=== PATIENT | male | born 1960 | race Caucasian/White ===

== ENCOUNTER 2021-01-19 07:21 | Inpatient (IN) ==
[2021-01-19] MEDS ORDERED: fentaNYL citrate 100 MCG/2 ML VIAL IV STA (07:32)
[2021-01-19 07:39] LABS: Basophils # (auto) 0.04 K/uL (0-0.2); Basophils % (auto) 0.7 %; Eosinophils # (auto) 0.12 K/uL (0-0.5); Eosinophils % (auto) 2.1 %; Hematocrit (blood only) 51.1 % (42-52); Immature Granulocytes # (auto) 0.02 K/uL (0.00-0.02); Immature Granulocytes % (auto) 0.3 %; Lymphocytes # (auto) 1.23 K/uL (1.2-3.4); Lymphocytes % (auto) 21.4 %; Mean Corpuscular Hemoglobin 31.1 pg (25-34); Mean Corpuscular Hgb Conc 35.2 g/dL (32-36); Mean Corpuscular Volume 88.4 fL (80-100); Mean Platelet Volume 9.9 fL (7.4-10.4); Monocytes # (auto) 0.43 K/uL (0.11-0.59); Monocytes % (auto) 7.5 %; Platelet Count 227 K/uL (130-400); RDW Coefficient of Variation 12.7 % (11.5-14.5); RDW Standard Deviation 40.5 fL (36.4-46.3); Red Blood Count 5.78 M/uL (4.7-6.1); White Blood Count 5.74 K/uL (4.8-10.8)
--- NOTE | 2021-01-19 07:39 | Emergency Department Note ---
History of Present Illness General Chief complaint: Chest Pain Time Seen by Provider: 01/19/21 07:21 Source: patient History of Present Illness Provider complaint: Chest pain Onset (ago): hour(s) Location: chest and left Radiation: extremity (Left upper arm) Severity: moderate Pain Consistency: + constant Maximum Pain Intensity: 4 Quality: + other (Tightness) Relieved By: + medication (Nitroglycerin) Exacerbated By: + none Associated symptoms: + diaphoresis and + shortness of breath; no cough, no fever/chills, no headaches, no nausea/vomiting and no syncope This is a 60-year-old male who presents with chest pain starting this morning approximately 5 AM. He describes it as a tightness on the left side of his chest under his armpit and into his left arm. He rates it a 4 out of 10 in severity. He did have some relief with the nitroglycerin he was given in the ambulance but that made him very lightheaded and pale. He does have associated shortness of breath and diaphoresis. He has never had a cardiac history in the past but is treated for hypertension. He denies any fever, cough or cold symptoms, headache, myalgias, loss of taste or smell, abdominal pain, vomiting, diarrhea, urinary symptoms or leg swelling or pain. He denies any recent i mmobilization. He has no history of PE or DVT. Home Medications Medication Instructions Recorded Confirmed Type Barley Powder 1 applic PO QAM 01/19/21 01/19/21 History Beet Juice Powder 1 applic PO QAM 01/19/21 01/19/21 History Liquid Immune Booster 0.25 tsp PO BID 01/19/21 01/19/21 History aspirin 81 mg PO QAM #30 tab 01/19/21 Rx atorvastatin 80 mg PO QAM #30 tab 01/19/21 Rx captopril 6.25 mg PO Q8 #90 tab 01/19/21 Rx cholecalciferol (vitamin D3) 0 mcg PO QAM 01/19/21 01/19/21 History [Vitamin D3] fish,bora,flax oils-om3,6,9no1 1 cap PO QAM 01/19/21 01/19/21 History [Clayton 3-6-9] metoprolol tartrate 12.5 mg PO Q8H #45 tab 01/19/21 Rx zinc sulfate 0 mg PO QAM 01/19/21 01/19/21 History Allergies Allergy/AdvReac Type Severity Reaction Status Date / Time Penicillins Allergy Unknown Unknown Verified 01/19/21 08:08 Past Med/Surg History Medical History Hypertension Family History (Updated 01/19/21 @ 12:53 by Gwendolyn Smyth MD) Other Family history non-contributory Social History Smoking Status: Never smoker Hx Alcohol Use: No Hx Substance Use: No Preferred Language: Indonesian Communication Ability: Effective Recreation Director Required: No Beliefs That Will Affect Care: None Current Living Situation: Spouse Feels Safe at Home: Yes Safety Concerns: Feels Safe At This Time Assistive Devices: Glasses Review of Systems See HPI for pertinent positives & negatives. and A total of 10 systems reviewed and were otherwise negative Physical Exam Vital Signs Vital Signs - 24 hr 01/19/21 07:29 01/19/21 07:30 01/19/21 07:40 Temperature 36.9 C Temperature Source Oral Pulse Rate 88 90 82 Pulse Rate [Apical] Pulse Rate from SpO2 Sensor 90 82 Respiratory Rate 22 19 23 Respiratory Effort / Characteristics Respiratory Depth Respiratory Pattern Blood Pressure 183/125 H 188/124 H 170/116 H Blood Pressure [Left Arm] Blood Pressure Mean 144 145 134 Blood Pressure Mean [Left Arm] Pulse Oximetry 80 L 79 L 94 Oxygen Delivery Method Room Air Oxygen Flow Rate Sepsis Recent Fever Within 48 Hours No Sepsis New/Unexplained Change in Mental Status N/A Sepsis Action Taken by Nursing No Action Required 01/19/21 07:50 01/19/21 08:00 01/19/21 08:38 Temperature Temperature Source Pulse Rate 79 83 101 H Pulse Rate [Apical] Pulse Rate from SpO2 Sensor 77 82 Respiratory Rate 18 21 23 Respiratory Effort / Characteristics Respiratory Depth Respiratory Pattern Blood Pressure 175/121 H Blood Pressure [Left Arm] Blood Pressure Mean 139 Blood Pressure Mean [Left Arm] Pulse Oximetry 99 95 Oxygen Delivery Method Oxygen Flow Rate Sepsis Recent Fever Within 48 Hours Sepsis New/Unexplained Change in Mental Status Sepsis Action Taken by Nursing 01/19/21 08:39 01/19/21 09:00 01/19/21 09:30 Temperature Temperature Source Pulse Rate 98 H 103 H 89 Pulse Rate [Apical] Pulse Rate from SpO2 Sensor 98 H Respiratory Rate 14 22 19 Respiratory Effort / Characteristics Respiratory Depth Respiratory Pattern Blood Pressure 155/98 H Blood Pressure [Left Arm] Blood Pressure Mean 117 Blood Pressure Mean [Left Arm] Pulse Oximetry 86 L 93 Oxygen Delivery Method Nasal Cannula Nasal Cannula Oxygen Flow Rate 3 6 Sepsis Recent Fever Within 48 Hours Sepsis New/Unexplained Change in Mental Status Sepsis Action Taken by Nursing 01/19/21 10:00 01/19/21 10:01 01/19/21 10:26 Temperature Temperature Source Pulse Rate 86 92 H Pulse Rate [Apical] Pulse Rate from SpO2 Sensor 91 H Respiratory Rate 12 22 Respiratory Effort / Characteristics Respiratory Depth Respiratory Pattern Blood Pressure 180/119 H Blood Pressure [Left Arm] Blood Pressure Mean 139 Blood Pressure Mean [Left Arm] Pulse Oximetry 95 95 Oxygen Delivery Method Nasal Cannula Oxygen Flow Rate 3 Sepsis Recent Fever Within 48 Hours Sepsis New/Unexplained Change in Mental Status Sepsis Action Taken by Nursing 01/19/21 10:27 01/19/21 10:30 01/19/21 11:00 Temperature Temperature Source Pulse Rate 88 87 108 H Pulse Rate [Apical] Pulse Rate from SpO2 Sensor 82 87 Respiratory Rate 21 13 19 Respiratory Effort / Characteristics Respiratory Depth Respiratory Pattern Blood Pressure 181/124 H 178/119 H Blood Pressure [Left Arm] Blood Pressure Mean 143 138 Blood Pressure Mean [Left Arm] Pulse Oximetry 95 95 Oxygen Delivery Method Oxygen Flow Rate Sepsis Recent Fever Within 48 Hours Sepsis New/Unexplained Change in Mental Status Sepsis Action Taken by Nursing 01/19/21 11:08 01/19/21 12:15 01/19/21 12:30 Temperature Temperature Source Pulse Rate Pulse Rate [Apical] 85 85 Pulse Rate from SpO2 Sensor Respiratory Rate 17 17 Respiratory Effort / Characteristics Non-Labored Non-Labored Respiratory Depth Normal Normal Respiratory Pattern Regular Regular Blood Pressure Blood Pressure [Left Arm] 179/116 H 189/125 H Blood Pressure Mean Blood Pressure Mean [Left Arm] 137 146 Pulse Oximetry 92 91 Oxygen Delivery Method Nasal Cannula Room Air Room Air Oxygen Flow Rate 3 Sepsis Recent Fever Within 48 Hours Sepsis New/Unexplained Change in Mental Status Sepsis Action Taken by Nursing 01/19/21 12:45 Temperature Temperature Source Pulse Rate Pulse Rate [Apical] 83 Pulse Rate from SpO2 Sensor Respiratory Rate 18 Respiratory Effort / Characteristics Non-Labored Respiratory Depth Normal Respiratory Pattern Regular Blood Pressure Blood Pressure [Left Arm] 203/136 H Blood Pressure Mean Blood Pressure Mean [Left Arm] 158 Pulse Oximetry 91 Oxygen Delivery Method Room Air Oxygen Flow Rate Sepsis Recent Fever Within 48 Hours Sepsis New/Unexplained Change in Mental Status Sepsis Action Taken by Nursing Constitutional: Vital signs reviewed. O2 saturation is 80% on room air. Eyes: Pupils are equal round reactive to light. Conjunctiva are noninjected. ENT: Pharynx is clear without erythema or exudate. Mucous membranes are moist. Neck supple without meningeal signs. Respiratory: Clear to auscultation bilaterally. Breath sounds are equal bilaterally. Cardiovascular: Regular rate and rhythm. No rubs or gallops. GI: Soft, nondistended and nontender. Bowel sounds are present. Musculoskeletal: No peripheral edema. No lower extremity tenderness. Integumentary: No cyanosis. or jaundice. Neurological: The patient is awake and alert. No focal deficits. Psychiatric: Normal affect. Not anxious appearing. Course Administered Medications Atorvastatin Calcium (Atorvastatin 40 Mg Tab) 80 mg PO QAM [facility] Stop: 02/18/21 12:44 Last Admin: 01/19/21 14:45 Dose: 80 mg Documented by: [id number] Captopril (Captopril 12.5 Mg Tab) 6.25 mg PO Q8 [facility] Stop: 02/18/21 13:59 Last Admin: 01/19/21 13:15 Dose: 6.25 mg Documented by: [id number] Nitroglycerin/Dextrose (Nitroglycerin/D5w 100 Mcg/Ml) 250 mls @ 1.5 mls/hr IV .Q24H [facility]; Protocol Stop: 02/18/21 12:44 Last Titration: 01/19/21 15:09 Dose: 2.5 mcg/min, 1.5 mls/hr Documented by: [id number] Titration: 01/19/21 13:38 Dose: 0 mcg/min, 0 mls/hr Documented by: [id number] Admin: 01/19/21 13:15 Dose: 6 mcg/min, 3.6 mls/hr Documented by: [id number] Cosigned by: [id number] Metoprolol Tartrate (Metoprolol Tartrate 25 Mg Tab) 12.5 mg PO Q8H [facility] Stop: 02/18/21 12:44 Last Admin: 01/19/21 13:15 Dose: 12.5 mg Documented by: [id number] Discontinued Medications Dopamine HCl/Dextrose (Dopamine 400mg / 250ml D5w (Physician Assistant Certified Use Only)) Confirm Administered Dose 400 mg .ROUTE .STK-MED ONE Stop: 01/19/21 11:47 Last Admin: 01/19/21 12:14 Dose: Not Given Documented by: [id number] Eptifibatide (Eptifibatide 2 Mg/Ml 10 Ml Vial (Physician Assistant Certified Use Only)) Confirm Administered Dose 20 mg IV .STK-MED ONE Stop: 01/19/21 12:02 Last Admin: 01/19/21 12:05 Dose: 9 ml Documented by: [id number] Eptifibatide (Eptifibatide 0.75 Mg/Ml 75mg Vial (Physician Assistant Certified Use Only)) Confirm A dministered Dose 75 mg .ROUTE .STK-MED ONE Stop: 01/19/21 12:02 Last Increment: 01/19/21 12:05 Dose: 16 mg Documented by: [id number] Eptifibatide (Eptifibatide 2 Mg/Ml 10 Ml Vial (Physician Assistant Certified Use Only)) Confirm Administered Dose 20 mg IV .STK-MED ONE Stop: 01/19/21 12:06 Last Admin: 01/19/21 12:15 Dose: 9 ml Documented by: [id number] Fentanyl Citrate (Fentanyl Citrate 100 Mcg/2 Ml Vial) 50 mcg IV NOW STA Stop: 01/19/21 07:33 Last Admin: 01/19/21 08:02 Dose: 50 mcg Documented by: [id number] Fentanyl Citrate (Fentanyl Citrate 100 Mcg/2 Ml Vial) Confirm Administered Dose 0 mcg .ROUTE .STK-MED ONE Stop: 01/19/21 10:59 Last Increment: 01/19/21 12:11 Dose: 50 mcg Documented by: [id number] Fentanyl Citrate (Fentanyl Citrate 100 Mcg/2 Ml Vial) Confirm Administered Dose 100 mcg .ROUTE .STK-MED ONE Stop: 01/19/21 11:00 Last Admin: 01/19/21 12:13 Dose: Not Given Documented by: [id number] Furosemide (Furosemide 40 Mg/4 Ml Vial) 10 mg IV NOW STA Stop: 01/19/21 10:28 Last Admin: 01/19/21 11:00 Dose: 10 mg Documented by: [id number] Heparin Sodium (Porcine) (Heparin Sod (Porcine) 1000 Unit/Ml) 1 units IV NOW ONE Stop: 01/19/21 09:28 Last Admin: 01/19/21 10:20 Dose: 4,000 units Documented by: [id number] Cosigned by: [id number] Heparin Sodium (Porcine) (Heparin (Porcine) 1000 Unit/Ml 10 Ml (Physician Assistant Certified Use Only)) Confirm Administered Dose 10,000 units .ROUTE .STK-MED ONE Stop: 01/19/21 10:59 Last Admin: 01/19/21 12:11 Dose: 5,000 units Documented by: [id number] Heparin Sodium (Porcine) (Heparin (Porcine) 1000 Unit/Ml 10 Ml (Physician Assistant Certified Use Only)) Confirm Administered Dose 10,000 units .ROUTE .STK-MED ONE Stop: 01/19/21 11:01 Last Admin: 01/19/21 12:13 Dose: Not Given Documented by: [id number] Heparin Sodium/Dextrose (Heparin Iv Adult Wt-Based Low-Dose With Bolus Protocol) 1 ea N/A NOW STA; Protocol Stop: 01/19/21 09:13 Last Admin: 01/19/21 10:20 Dose: 1 ea Documented by: [id number] Heparin Sodium/Sodium Chloride (Heparin In Nss Infusion 1000 Unit/500 Ml (2 U/Ml) Bag) Confirm Administered Dose 3,000 units IV .STK-MED ONE Stop: 01/19/21 10:59 Last Admin: 01/19/21 12:11 Dose: 3,000 units Documented by: [id number] Heparin Sodium/Sodium Chloride (Heparin In Nss Infusion 1000 Unit/500 Ml (2 U/Ml) Bag) Confirm Administered Dose 3,000 units IV .STK-MED ONE Stop: 01/19/21 11:01 Last Admin: 01/19/21 12:14 Dose: Not Given Documented by: [id number] Heparin Sodium/Dextrose (Heparin Sodium/Dextrose) 25,000 units in 500 mls @ 18 mls/hr IV .Q24H [facility]; Protocol Stop: 02/18/21 09:26 Last Admin: 01/19/21 10:20 Dose: 900 units/hr, 18 mls/hr Documented by: [id number] Cosigned by: [id number] Ioversol (Optiray 350 500ml) 102 ml IV ONCE ONE Stop: 01/19/21 08:36 Last Admin: 01/19/21 08:36 Dose: 102 ml Documented by: [id number] Midazolam HCl (Midazolam Hcl 1 Mg/Ml 2ml Vial) Confirm Administered Dose 2 mg .ROUTE .STK-MED ONE Stop: 01/19/21 10:59 Last Increment: 01/19/21 12:11 Dose: 1 mg Documented by: [id number] Midazolam HCl (Midazolam Hcl 1 Mg/Ml 2ml Vial) Confirm Administered Dose 2 mg .ROUTE .STK-MED ONE Stop: 01/19/21 11:00 Last Admin: 01/19/21 12:13 Dose: Not Given Documented by: [id number] Nicardipine HCl (Nicardipine Hcl Inj 2.5 Mg/Ml 10 Ml Amp) Confirm Administered Dose 25 mg .ROUTE .STK-MED ONE Stop: 01/19/21 10:59 Last Admin: 01/19/21 12:11 Dose: 0.15 mg Documented by: [id number] Nicardipine HCl (Nicardipine Hcl Inj 2.5 Mg/Ml 10 Ml Amp) Confirm Administered Dose 25 mg .ROUTE .STK-MED ONE Stop: 01/19/21 11:00 Last Admin: 01/19/21 12:13 Dose: Not Given Documented by: [id number] Nitroglycerin (Nitroglycerin 2% Ointment 30gm Tube) 0.5 inch EXT Q6H [facility] Stop: 02/18/21 10:44 Last Admin: 01/19/21 11:00 Dose: 0.5 inch Documented by: [id number] Nitroglycerin/Dextrose (Nitroglycerin/D5w 100mcg/Ml 20ml Syr) Confirm Administered Dose 2,000 mcg .ROUTE .STK-MED ONE Stop: 01/19/21 10:59 Last Admin: 01/19/21 12:12 Dose: 2,000 mcg Documented by: [id number] Nitroglycerin/Dextrose (Nitroglycerin/D5w 100 Mcg/Ml Btl) Confirm Administered Dose 25 mg .ROUTE .STK-MED ONE Stop: 01/19/21 12:02 Last Admin: 01/19/21 12:15 Dose: 5 mcg.per.kg Documented by: [id number] Cosigned by: [id number] Norepinephrine Bitartrate (Norepinephrine Bitartrate 1 Mg/Ml 4 Ml Vial (Physician Assistant Certified Use Only)) Confirm Administered Dose 4 mg .ROUTE .STK-MED ONE Stop: 01/19/21 11:47 Last Admin: 01/19/21 12:14 Dose: Not Given Documented by: [id number] Potassium Chloride (Potassium Chloride Crtab 20 Meq Tabcr) 40 meq PO NOW STA Stop: 01/19/21 09:43 Last Admin: 01/19/21 10:17 Dose: 40 meq Documented by: [id number] Critical Care Time Critical Care Time: Yes Total Critical Care Time: 40 I have personally spent approximately 40 minutes of critical care time in the direct management of this patient. This includes bedside care, interpretation of diagnostic studies, and testing, discussion with consultants, patient, and family members, and other required patient management activities. These minutes are in excess of all separately billable procedures. Medical Decision Making Differential Diagnosis Inferior wall ME, right ventricular infarct, pulmonary embolism, pneumonia, COVID-19, GERD, pleurisy Medical Records Attestation: I reviewed the patient's medical records. I did perform a limited focused review of portions of the patient's old chart on the electronic medical record. The patient has had no recent pertinent visits to this hospital. Home Medications Current Medication List: was personally reviewed by me Laboratory Data Attestation: I reviewed the patient's lab results. Result diagrams: 01/19/21 06:45 01/19/21 06:45 Lab Results 01/19/21 01/19/21 01/19/21 Range/Units 06:45 06:45 06:45 WBC 5.74 (4.8-10.8) K/uL RBC 5.78 (4.7-6.1) M/uL Hgb 18.0 (14.0-18.0) g/dL POC Hgb (14.0-18.0) g/dl Hct 51.1 (42-52) % POC Hct (42-52) % MCV 88.4 (80-100) fL MCH 31.1 (25-34) pg MCHC 35.2 (32-36) g/dL RDW Std Deviation 40.5 (36.4-46.3) fL RDW Coeff of Bib 12.7 (11.5-14.5) % Plt Count 227 (130-400) K/uL MPV 9.9 (7.4-10.4) fL Immature Gran % (Auto) 0.3 % Neut % (Auto) 68.0 % Lymph % (Auto) 21.4 % Logan % (Auto) 7.5 % Eos % (Auto) 2.1 % Baso % (Auto) 0.7 % Neut # (Auto) 3.90 (1.4-6.5) K/uL Lymph # (Auto) 1.23 (1.2-3.4) K/uL Logan # (Auto) 0.43 (0.11-0.59) K/uL Eos # (Auto) 0.12 (0-0.5) K/uL Baso # (Auto) 0.04 (0-0.2) K/uL Immature Gran # (Auto) 0.02 (0.00-0.02) K/uL PT 10.2 (9.0-12.0) Seconds INR 1.0 (0.9-1.1) APTT 28.2 (21.0-31.0) Seconds PTT Ratio 1.1 Activ Coag Time Kaolin (94-140) SECONDS POC Sodium (135-144) mmol/L Sodium 137 (136-145) mmol/L POC Potassium (3.3-5.0) mmol/L Potassium 3.3 L (3.5-5.1) mmol/L POC Chloride (101-112) mmol/L Chloride 102 (98-107) mmol/L Carbon Dioxide 29 (21-32) mmol/L POC Total CO2 (24-31) mmol/L Anion Gap 7.0 (3-11) POC Anion Gap (16-25) mmol/L POC BUN (7-18) mg/dl BUN 13 (7-18) mg/dl Creatinine 1.10 (0.6-1.4) mg/dl POC Creatinine (0.6-1.3) mg/dl Est Cr Clr Drug Dosing 75.9 ml/min Est GFR ( Amer) 83.5 Est GFR (Non-Af Amer) 72.1 BUN/Creatinine Ratio 12.1 (10-20) Glucose 130 H (70-99) mg/dl POC Glucose (other) (70-99) mg/dl Calcium 9.5 (8.5-10.1) mg/dl POC Ioniz Calcium Barbara (1.12-1.32) mmol/l Total Bilirubin 0.6 (0.2-1) mg/dl AST 31 (15-37) U/L ALT 55 (12-78) U/L Alkaline Phosphatase 104 (45-117) U/L Troponin I 0.286 H* (0-0.045) ng/ml NT-Pro-B Natriuret Pep 265 (0-900) pg/ml Total Protein 8.6 H (6.4-8.2) gm/dl Albumin 4.3 (3.4-5.0) gm/dl Globulin 4.3 H (2.5-4.0) gm/dl Albumin/Globulin Ratio 1.0 (0.9-2) Lipase 262 (73-393) U/L COVID-19 Eval Order SARS-CoV-2 (PCR) Influenza Type A (PCR) Influenza Type B (PCR) RSV (RT-PCR) SARS-CoV-2, RNA, NAAT (NEGATIVE) 01/19/21 01/19/21 01/19/21 Range/Units 07:37 07:37 07:42 WBC (4.8-10.8) K/uL RBC (4.7-6.1) M/uL Hgb (14.0-18.0) g/dL POC Hgb 15.6 (14.0-18.0) g/dl Hct (42-52) % POC Hct 46 (42-52) % MCV (80-100) fL MCH (25-34) pg MCHC (32-36) g/dL RDW Std Deviation (36.4-46.3) fL RDW Coeff of Bbi (11.5-14.5) % Plt Count (130-400) K/uL MPV (7.4-10.4) fL Immature Gran % (Auto) % Neut % (Auto) % Lymph % (Auto) % Logan % (Auto) % Eos % (Auto) % Baso % (Auto) % Neut # (Auto) (1.4-6.5) K/uL Lymph # (Auto) (1.2-3.4) K/uL Logan # (Auto) (0.11-0.59) K/uL Eos # (Auto) (0-0.5) K/uL Baso # (Auto) (0-0.2) K/uL Immature Gran # (Auto) (0.00-0.02) K/uL PT (9.0-12.0) Seconds INR (0.9-1.1) APTT (21.0-31.0) Seconds PTT Ratio Activ Coag Time Kaolin (94-140) SECONDS POC Sodium 139 (135-144) mmol/L Sodium (136-145) mmol/L POC Potassium 3.8 (3.3-5.0) mmol/L Potassium (3.5-5.1) mmol/L POC Chloride 100 L (101-112) mmol/L Chloride (98-107) mmol/L Carbon Dioxide (21-32) mmol/L POC Total CO2 28 (24-31) mmol/L Anion Gap (3-11) POC Anion Gap 16.0 (16-25) mmol/L POC BUN 13 (7-18) mg/dl BUN (7-18) mg/dl Creatinine (0.6-1.4) mg/dl POC Creatinine 1.1 (0.6-1.3) mg/dl Est Cr Clr Drug Dosing ml/min Est GFR ( Amer) Est GFR (Non-Af Amer) BUN/Creatinine Ratio (10-20) Glucose (70-99) mg/dl POC Glucose (other) 136 H (70-99) mg/dl Calcium (8.5-10.1) mg/dl POC Ioniz Calcium Barbara 1.12 (1.12-1.32) mmol/l Total Bilirubin (0.2-1) mg/dl AST (15-37) U/L ALT (12-78) U/L Alkaline Phosphatase (45-117) U/L Troponin I (0-0.045) ng/ml NT-Pro-B Natriuret Pep (0-900) pg/ml Total Protein (6.4-8.2) gm/dl Albumin (3.4-5.0) gm/dl Globulin (2.5-4.0) gm/dl Albumin/Globulin Ratio (0.9-2) Lipase (73-393) U/L COVID-19 Eval Order CovFluRsv at [facility] SARS-CoV-2 (PCR) Cancelled Influenza Type A (PCR) Cancelled Influenza Type B (PCR) Cancelled RSV (RT-PCR) Cancelled SARS-CoV-2, RNA, NAAT (NEGATIVE) 01/19/21 01/19/21 01/19/21 Range/Units 10:10 11:00 11:00 WBC (4.8-10.8) K/uL RBC (4.7-6.1) M/uL Hgb (14.0-18.0) g/dL POC Hgb (14.0-18.0) g/dl Hct (42-52) % POC Hct (42-52) % MCV (80-100) fL MCH (25-34) pg MCHC (32-36) g/dL RDW Std Deviation (36.4-46.3) fL RDW Coeff of Bib (11.5-14.5) % Plt Count (130-400) K/uL MPV (7.4-10.4) fL Immature Gran % (Auto) % Neut % (Auto) % Lymph % (Auto) % Logan % (Auto) % Eos % (Auto) % Baso % (Auto) % Neut # (Auto) (1.4-6.5) K/uL Lymph # (Auto) (1.2-3.4) K/uL Logan # (Auto) (0.11-0.59) K/uL Eos # (Auto) (0-0.5) K/uL Baso # (Auto) (0-0.2) K/uL Immature Gran # (Auto) (0.00-0.02) K/uL PT (9.0-12.0) Seconds INR (0.9-1.1) APTT (21.0-31.0) Seconds PTT Ratio Activ Coag Time Kaolin (94-140) SECONDS POC Sodium (135-144) mmol/L Sodium (136-145) mmol/L POC Potassium (3.3-5.0) mmol/L Potassium (3.5-5.1) mmol/L POC Chloride (101-112) mmol/L Chloride (98-107) mmol/L Carbon Dioxide (21-32) mmol/L POC Total CO2 (24-31) mmol/L Anion Gap (3-11) POC Anion Gap (16-25) mmol/L POC BUN (7-18) mg/dl BUN (7-18) mg/dl Creatinine (0.6-1.4) mg/dl POC Creatinine (0.6-1.3) mg/dl Est Cr Clr Drug Dosing ml/min Est GFR ( Amer) Est GFR (Non-Af Amer) BUN/Creatinine Ratio (10-20) Glucose (70-99) mg/dl POC Glucose (other) (70-99) mg/dl Calcium (8.5-10.1) mg/dl POC Ioniz Calcium Barbara (1.12-1.32) mmol/l Total Bilirubin (0.2-1) mg/dl AST (15-37) U/L ALT (12-78) U/L Alkaline Phosphatase (45-117) U/L Troponin I 7.780 H* (0-0.045) ng/ml NT-Pro-B Natriuret Pep (0-900) pg/ml Total Protein (6.4-8.2) gm/dl Albumin (3.4-5.0) gm/dl Globulin (2.5-4.0) gm/dl Albumin/Globulin Ratio (0.9-2) Lipase (73-393) U/L COVID[facility]19 [facility] SARS-CoV-2 (PCR) Influenza Type A (PCR) Influenza Type B (PCR) RSV (RT-PCR) SARS-CoV-2, RNA, NAAT NEGATIVE (NEGATIVE) 01/19/21 Range/Units 12:05 WBC (4.8-10.8) K/uL RBC (4.7-6.1) M/uL Hgb (14.0-18.0) g/dL POC Hgb (14.0-18.0) g/dl Hct (42-52) % POC Hct (42-52) % MCV (80-100) fL MCH (25-34) pg MCHC (32-36) g/dL RDW Std Deviation (36.4-46.3) fL RDW Coeff of Bib (11.5-14.5) % Plt Count (130-400) K/uL MPV (7.4-10.4) fL Immature Gran % (Auto) % Neut % (Auto) % Lymph % (Auto) % Logan % (Auto) % Eos % (Auto) % Baso % (Auto) % Neut # (Auto) (1.4-6.5) K/uL Lymph # (Auto) (1.2-3.4) K/uL Logan # (Auto) (0.11-0.59) K/uL Eos # (Auto) (0-0.5) K/uL Baso # (Auto) (0-0.2) K/uL Immature Gran # (Auto) (0.00-0.02) K/uL PT (9.0-12.0) Seconds INR (0.9-1.1) APTT (21.0-31.0) Seconds PTT Ratio Activ Coag Time Kaolin 197 H (94-140) SECONDS POC Sodium (135-144) mmol/L Sodium (136-145) mmol/L POC Potassium (3.3-5.0) mmol/L Potassium (3.5-5.1) mmol/L POC Chloride (101-112) mmol/L Chloride (98-107) mmol/L Carbon Dioxide (21-32) mmol/L POC Total CO2 (24-31) mmol/L Anion Gap (3-11) POC Anion Gap (16-25) mmol/L POC BUN (7-18) mg/dl BUN (7-18) mg/dl Creatinine (0.6-1.4) mg/dl POC Creatinine (0.6-1.3) mg/dl Est Cr Clr Drug Dosing ml/min Est GFR ( Amer) Est GFR (Non-Af Amer) BUN/Creatinine Ratio (10-20) Glucose (70-99) mg/dl POC Glucose (other) (70-99) mg/dl Calcium (8.5-10.1) mg/dl POC Ioniz Calcium Barbara (1.12-1.32) mmol/l Total Bilirubin (0.2-1) mg/dl AST (15-37) U/L ALT (12-78) U/L Alkaline Phosphatase (45-117) U/L Troponin I (0-0.045) ng/ml NT-Pro-B Natriuret Pep (0-900) pg/ml Total Protein (6.4-8.2) gm/dl Albumin (3.4-5.0) gm/dl Globulin (2.5-4.0) gm/dl Albumin/Globulin Ratio (0.9-2) Lipase (73-393) U/L COVID-19 Eval Order SARS-CoV-2 (PCR) Influenza Type A (PCR) Influenza Type B (PCR) RSV (RT-PCR) SARS-CoV-2, RNA, NAAT (NEGATIVE) Imaging Data Radiologist's Impression: Chest X-Ray 01/19/21 07:21 XR chest 1V portable HISTORY: 60 years-old Male Chest Pain acute atypical chest pain COMPARISON: None TECHNIQUE: Portable AP view the chest FINDINGS: Mild cardiomegaly. Pulmonary vascular congestion with bilateral reticular opa cities. No pneumothorax or large pleural effusion. Degenerative changes of the shoulders and spine. IMPRESSION: Cardiomegaly and pulmonary vascular congestion with reticular interstitial opacities suggestive of pulmonary edema. An interstitial pneumonitis considered less likely. ACT 112: Negative or not required by law. The above report was generated using voice recognition software. It may contain grammatical, syntax or spelling errors. Electronically signed by: Lino Frye M.D. 01/19/2021 7:41 AM Chest CTA 01/19/21 07:32 CT ANGIOGRAM OF THE CHEST CLINICAL HISTORY: Atypical chest pain. COMPARISON STUDY: Chest x-ray dated 01/19/2021. TECHNIQUE: Following the IV administration of 102 cc of Optiray 350, CT angiogram of the chest was performed from the upper abdomen to the thoracic inlet utilizing the pulmonary embolus protocol. Images are reviewed in the axial, sagittal, and coronal planes. 3-D MIPS images are created and assessed. IV contrast was administered without complication. A dose lowering technique was utilized adhering to the principles of ALARA. CT DOSE: 691.36 mGy.cm FINDINGS: Thyroid: Imaged portions of the thyroid gland are normal in size and attenuation. Thoracic aorta: The thoracic aorta is normal in caliber and demonstrates standard 3-vessel arch anatomy. There is no evidence of dissection. Pulmonary vasculature: The pulmonary trunk is normal in caliber. There are no filling defects identified in main, lobar, or segmental pulmonary branches to suggest pulmonary embolus. Heart: The heart is enlarged and without pericardial effusion. The coronary arteries are densely calcified. Lungs and pleural spaces: There is diffuse intralobular septal thickening. Trace pleural effusions are noted. Trace fluid is also seen tracking along both major fissures. Patchy groundglass consolidation is seen throughout both lungs. The trachea and central airways are clear. Mediastinum: Scattered subcentimeter mediastinal lymph nodes are not pathologically enlarged by size criteria. Anamika: Clear. Axillae: There is no axillary lymphadenopathy. Upper abdomen: There is a small hiatal hernia. The liver appears steatotic. Partially visualized upper abdominal viscera is otherwise within normal limits. Skeletal structures: No lytic or blastic bony lesions are seen. Mild spondylotic change is noted in the thoracic spine. IMPRESSION: 1. There is no evidence of pulmonary embolus in the main, lobar, or segmental pulmonary arteries. 2. Cardiomegaly with evidence of congestive failure. 3. Trace pleural effusions. 4. Patchy groundglass consolidation is seen throughout both lungs and likely represents pulmonary edema. Correlate clinically for evidence of a superimposed infectious/inflammatory pneumonitis. Radiographic follow-up to resolution is recommended. 5. Additional findings as above. ACT 112: Negative or not required by law. Electronically signed by: Raghav Delvalle M.D. 01/19/2021 8:59 AM ECG Data Attestation: I personally reviewed and interpreted this ECG as follows: Indication: + chest pain Rate (beats per minute): 89 Rhythm: + normal sinus ECG ST segments: + ST depression (Inferior and laterally) and + T-wave inversions (Lateral) ECG Findings: + Q waves; no PVCs Comparison ECG Date: from (May 22, 2019) Change: the following changes noted (ST depression and T wave inversions and Q waves are new all new) Additional Comments: Right-sided twelve-lead EKG performed at 735 per my interpretation shows normal sinus rhythm at a rate of 79 bpm. There are some slight ST depressions inferiorly with T wave inversions in the high lateral leads. No evidence of right ventricular infarct or ST elevations. A repeat twelve-lead EKG was performed after the patient was chest pain-free. This was performed at 9:03 AM. Per my interpretation he has normal sinus rhythm with a rate of 93 bpm. He has persistent T wave inversions in the high lateral leads. He has some mild ST segment depression in the inferior leads improved from his prior EKG. Q waves anterior septally. MDM Narrative I did provide medical plan for the patient. He was having active chest pain and he was given aspirin and sublingual nitroglycerin. This caused him to become bradycardic with a heart rate in the 40s with atrial fibrillation. He was given fluids and Zofran and is heart rate normalized and he became hypertensive. The global climate change researcher noted that he was hypoxic on room air prior to the nitroglycerin. He denies having any Covid symptoms. I did evaluate the patient immediately on arrival as noted above. He was placed on supplemental oxygen via nasal cannula due to a pulse ox of 80 on room air. I did treat him with fentanyl [address] did [address] an order for continuous cardiac monitoring. The monitor showed normal sinus rhythm at a rate of 81 bpm. I did order and personally review the patient's 12-lead EKG as described above. He has ST depressions in the inferior leads. He has T wave inversions in the high lateral leads. He also has ST depressions in the lateral leads with Q waves anterior laterally. I did order a right-sided EKG which does not show any signs of right ventricular infarct. I did order and personally reviewed the images of the patient's chest x-ray as described above. He has cardiomegaly and signs of congestive heart failure. I did order and review the patient's blood work as noted in the electronic medical record.CBC does not demonstrate leukocytosis, anemia or thrombocytopenia. Electrolytes are remarkable for a potassium of 3.3. Troponin is elevated at 0.29. I did order a CT angiogram of the chest. I did review the images myself as well as the radiology report as described above. There is no evidence of pulmonary embolism. He does have congestive failure with groundglass opacities also concerning for possible pneumonitis. His initial Covid test was not resulted and we had to redo it. He was placed in respiratory isolation in the meantime. I did reassess the patient. I did obtain his third twelve-lead EKG as noted above. He now states that he has no chest discomfort or any pain in his arm as well. The patient wanted to go home. I did recommend he stay in the hospital given his findings. I did recommend treatment with IV heparin and discussed risks and benefits with him. He denies any history of bleed and denies any melena or rectal bleeding. I did start him on IV heparin with a bolus and drip. I did discuss case with the hospitalist and sample case porter. According to the hospitalist service the patient had recurrent pain and they repeated his troponin which was over 7. Cardiology was called and he was taken to the cardiac Physician Assistant Certified. He had a negative Covid test. Impression & Plan Acute non-ST elevation myocardial infarction (NSTEMI), Acute pulmonary edema with congestive heart failure, Hypoxemia Discharge Plan Visit Data Chief Complaint: Chest Pain ED Provider: Romeo Hummel Discharge Problem: Acute non-ST elevation myocardial infarction (NSTEMI), Acute pulmonary edema with congestive heart failure, Hypoxemia Patient Disposition: Admitted As Inpatient Condition: Serious Discharge Instructions Interventions: ED Discharge Assessment Last Done: 01/19/21 11:08
--- NOTE | 2021-01-19 07:42 | XRay Report ---
XR chest 1V portable HISTORY: 60 years-old Male Chest Pain acute atypical chest pain COMPARISON: None TECHNIQUE: Portable AP view the chest FINDINGS: Mild cardiomegaly. Pulmonary vascular congestion with bilateral reticular opacities. No pneumothorax or large pleural effusion. Degenerative changes of the shoulders and spine. IMPRESSION: Cardiomegaly and pulmonary vascular congestion with reticular interstitial opacities sugg estive of pulmonary edema. An interstitial pneumonitis considered less likely. ACT 112: Negative or not required by law. The above report was generated using voice recognition software. It may contain grammatical, syntax o r spelling errors. Electronically signed by: Lino Frye M.D. 01/19/2021 7:41 AM
[2021-01-19 07:54] LABS: iSTAT Creatinine 1.1 mg/dl (0.6-1.3); iSTAT Hemoglobin 15.6 g/dl (14.0-18.0); iSTAT Ionized Calcium 1.12 mmol/l (1.12-1.32); iSTAT Potassium 3.8 mmol/L (3.3-5.0)
[2021-01-19 07:55] LABS: Albumin Level 4.3 gm/dl (3.4-5.0); BUN Creatinine Ratio 12.1 (10-20); Calcium 9.5 mg/dl (8.5-10.1); Creatinine Clr Calc Pharmacy 75.9 ml/min; Est GFR (African American) 83.5; Est GFR (Non-African American) 72.1; Potassium 3.3 mmol/L (3.5-5.1)
[2021-01-19 08:00] LABS: Partial Thromboplastin Ratio 1.1; Partial Thromboplastin Time 28.2 Seconds (21.0-31.0); Prothrombin Time 10.2 Seconds (9.0-12.0)
[2021-01-19 08:13] LABS: Bilirubin,Total 0.6 mg/dl (0.2-1); Globulin 4.3 gm/dl (2.5-4.0); Total Protein 8.6 gm/dl (6.4-8.2); Troponin I 0.286 ng/ml (0-0.045)
[2021-01-19] MEDS ORDERED: OPTIRAY 350 500ml IV ONE (08:35)
--- NOTE | 2021-01-19 09:00 | CT Scan Report ---
CT ANGIOGRAM OF THE CHEST CLINICAL HISTORY: Atypical chest pain. COMPARISON STUDY: Chest x-ray dated 01/19/2021. TECHNIQUE: Following the IV administration of 102 cc of Optiray 350, CT angiogram of the chest was pe rformed from the upper abdomen to the thoracic inlet utilizing the pulmonary embolus protocol. Images are reviewed in the axial, sagittal, and coronal planes. 3-D MIPS images are created and assessed. I V contrast was administered without complication. A dose lowering technique was utilized adhering to the principles of ALARA. CT DOSE: 691.36 mGy.cm FINDINGS: Thyroid: Imaged portions of the thyroid gland are normal in size and attenuation. Thoracic aorta: The thoracic aorta is normal in caliber and demonstrates standard 3-vessel arch anato my. There is no evidence of dissection. Pulmonary vasculature: The pulmonary trunk is normal in caliber. There are no filling defects identif ied in main, lobar, or segmental pulmonary branches to suggest pulmonary embolus. Heart: The heart is enlarged and without pericardial effusion. The coronary arteries are densely calc ified. Lungs and pleural spaces: There is diffuse intralobular septal thickening. Trace pleural effusions ar e noted. Trace fluid is also seen tracking along both major fissures. Patchy groundglass consolidatio n is seen throughout both lungs. The trachea and central airways are clear. Mediastinum: Scattered subcentimeter mediastinal lymph nodes are not pathologically enlarged by size criteria. Anamika: Clear. Axillae: There is no axillary lymphadenopathy. Upper abdomen: There is a small hiatal hernia. The liver appears steatotic. Partially visualized uppe r abdominal viscera is otherwise within normal limits. Skeletal structures: No lytic or blastic bony lesions are seen. Mild spondylotic change is noted in t he thoracic spine. IMPRESSION: 1. There is no evidence of pulmonary embolus in the main, lobar, or segmental pulmonary arteries. 2. Cardiomegaly with evidence of congestive failure. 3. Trace pleural effusions. 4. Patchy groundglass consolidation is seen throughout both lungs and likely represents pulmonary alek ma. Correlate clinically for evidence of a superimposed infectious/inflammatory pneumonitis. [facility] to resolution is recommended. 5. Additional findings as above. ACT 112: Negative or not required by law. Electronically signed by: Raghav Delvalle M.D. 01/19/2021 8:59 AM
[2021-01-19] MEDS ORDERED: Heparin IV Adult Wt-Based Low-Dose WITH Bolus Protocol STA (09:12)
[2021-01-19] MEDS ORDERED: HEPARIN SOD (PORCINE) 1000 UNIT/ML IV ONE (09:27)
[2021-01-19] MEDS ORDERED: HEPARIN SODIUM/DEXTROSE 25,000 UNITS/500 ML BAG IV SCH (09:27)
--- NOTE | 2021-01-19 09:35 | Electrocardiogram Report ---
Test Reason : Blood Pressure : / mmHG Vent. Rate : 093 BPM Atrial Rate : 093 BPM P-R Int : 134 ms QRS Dur : 096 ms QT Int : 380 ms P-R-T Axes : 061 -20 107 degrees QTc Int : 472 ms Normal sinus rhythm Left atrial enlargement Anteroseptal infarct , age undetermined Abnormal ECG When compared with ECG of 22-MAY-2019 20:23, Anteroseptal infarct is now Present T-wave inversion in Lateral leads now present Confirmed by Sukhjinder Iqbal ([id number]) on 01/19/2021 9:33:58 AM Referred By: REFERRED SELF Confirmed By:Sukhjinder Iqbal
[2021-01-19] MEDS ORDERED: POTASSIUM CHLORIDE CRTAB 20 MEQ TABCR PO STA (09:42)
[2021-01-19] MEDS ORDERED: FUROSEMIDE 40 MG/4 ML VIAL IV STA (10:27)
[2021-01-19] MEDS ORDERED: NITROGLYCERIN 2% OINTMENT 30GM TUBE EXT SCH (10:45)
--- NOTE | 2021-01-19 10:46 | History & Physical Report ---
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 - Asa daily 81mg - BP goals and medication addition following cath - ECHO pending - lipids panel pending- addition of statin - A1C - BB following cath (2) Hypertension: Not previously on any mediations secondary to side effects of tiredness and dizziness - evaluate post cath- JOSE (3) Obesity: Continue with weight control- cardiac rehab following admisison (4) Hyperglycemia: 130 on BMP - HGB A1c in morning - will add SSI on for BG >180 if needed (5) DVT prophylaxis: SCD's -heparin drip - other antiplatelet agents per cards following cath History of Present Illness Chief Complaint: chest pain Primary Care Provider: Dandre Maguire, DO 60 YOM that does not really follow with PCP and has tried hemeopathics. He reports history of high blood pressure about 6-8 years ago, where he was trialed on multiple agents. Each of them made him either feel tired or dizzy, he then started exercising and diet control and lost 20 lbs. This brought his blood pressure into normal range for him and he was able to come off his BP agent. He does not recall what that agent was. He had on syncopal episode of syncope around that time at [facility] and was told at that time his blood pressure was low and then high. He takes fish oil bora, flax oil 3-6-9 for cardiac protection. He has been having chest pain that starts in his left axiale over the past year, but has becoming more frequent over the past 2 weeks. This pain is sharp in nature and also goes to his left bicep. He does not think these pains are in connection with each other, as one may come without the other. The pain is associated with shortness of breath, he notices this more when he is walking to his work, which is about 100-150 yards through parking lot. His symptoms start about 50-75 yards into his walk. He does not have to stop but is winded by the time he gets his work. He also endorses leg swelling through the day that goes away in the morning after sleeping. He denies any orthopnea and can lay flat at night. He endorses fluttering feeling at times in his chest that is reoccurring when he lays on his left side at night. This may or may not cause the pain in his axilla. This morning he woke up and the pain started around 0600, it did not go away after he took 1 81mg aspirin so he called EMS. They arrived, he got 3 more 81 mg chewable aspirin as well as a nitroglycerin spray. He then remembers feeling dizzy and lightheaded at that time like he was going to pass out. In the ER he had a CXR done and a CTA of the chest to rule out PE. He was noted to have central ground glass opacities and interlobular thickening of his lungs. His CXR is consistent with vascular congestion as well. BNP and Troponin I ordered now. His EKG was reviewed hyperacute t-waves with reciprocal changes to inferior leads, his repeat troponin 3 hours later was 7.780 and a heart alert was called. He was started on a heparin drip, given 10 mg IV Lasix, and nitropaste was placed secondary to hypotension with SL nitro. 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 COVID test is negative Allergies Allergy/AdvReac Type Severity Reaction Status Date / Time Penicillins Allergy Unknown Unknown Verified 01/19/21 08:08 Home Medications Medication Instructions Recorded Confirmed Type Barley Powder 1 applic PO QAM 01/19/21 01/19/21 History Beet Juice Powder 1 applic PO QAM 01/19/21 01/19/21 History Liquid Immune Booster 0.25 tsp PO BID 01/19/21 01/19/21 History cholecalciferol (vitamin D3) 0 mcg PO QAM 01/19/21 01/19/21 History [Vitamin D3] fish,bora,flax oils-om3,6,9no1 1 cap PO QAM 01/19/21 01/19/21 History [Snyder 3-6-9] zinc sulfate 0 mg PO QAM 01/19/21 01/19/21 History Past Med/Surg History Medical History Hypertension Family History (Updated 01/19/21 @ 12:53 by Gwendolyn Smyth MD) Other Family history non-contributory Social History Smoking Status: Never smoker Hx Alcohol Use: No Hx Substance Use: No Preferred Language: Yoruba Communication Ability: Effective Transit Planning Director Required: No Beliefs That Will Affect Care: None Current Living Situation: Spouse Feels Safe at Home: Yes Safety Concerns: Feels Safe At This Time Assistive Devices: Glasses Review of Systems Review of Systems: REVIEW OF SYSTEMS: Constitutional: No fever, sweats or chills Eyes: No diplopia, no worsening or blurred vision ENT: normal hearing, no trouble swallowing Respiratory: (+) dyspnea on exertion No cough, sputum, dyspnea at rest Cardiovascular: (+) chest pain, tightness and palpitations, edema Abdomen: No pain, nausea, vomiting, diarrhea or constipation Musculoskeletal: No joint pain, calf pain, swelling Neurologic: No weakness, numbness/tingling, or balance problems Psychiatric: No anxiety or depression Skin: No rash or itch Physical Exam Physical Exam: PHYSICAL EXAM: General: awake, alert, no apparent distress Head: Normocephalic, atraumatic ENT: PERRL, EOMI, no pharyngeal exudate, mucous membranes moist Neuro: AAO x 3, speech clear and appropriate, strength intact bilaterally 5/5, sensation intact and equal all extremities and dermatomes, no pronator drift Chest: equal rise and fall of the chest, no accessory muscle use, no heaves or thrills, scattered crackles, on room air, Cardiac: Regular rate and rhythm, S1S2 no murmur, telemetry reviewed no dysrythmias, skin warm dry, cap refill <3 seconds, peripheral pulses +2 no JVD, no murmur, (+) 1 edema to bilateral lower legs GI: NABS x 4 quadrants, soft, nontender to palpation, no rebound, guarding or tenderness : Spontaneously voiding, no pain, no CVA tenderness Extremities: Normal inspection, no peripheral edema or erythema, calfs nontender to palpation Psych: Normal mood and affect Skin: no rash or erythema Results & Data Results & Data ([facility]) Vital Signs (Past 12 Hours) Vital Signs Temp Pulse Resp BP Pulse Ox 01/19/21 10:00 86 12 01/19/21 09:30 89 19 01/19/21 09:00 103 H 22 93 01/19/21 08:39 98 H 14 155/98 H 86 L 01/19/21 08:38 101 H 23 01/19/21 08:00 83 21 95 01/19/21 07:50 79 18 175/121 H 99 01/19/21 07:40 82 23 170/116 H 94 01/19/21 07:30 90 19 188/124 H 79 L 01/19/21 07:29 36.9 C 88 22 183/125 H 80 L Laboratory Results Abnormal lab results 01/19/21 01/19/21 01/19/21 Range/Units 06:45 07:42 10:10 Potassium 3.3 L (3.5-5.1) mmol/L POC Chloride 100 L (101-112) mmol/L Glucose 130 H (70-99) mg/dl POC Glucose (other) 136 H (70-99) mg/dl Troponin I 0.286 H* 7.780 H* (0-0.045) ng/ml Total Protein 8.6 H (6.4-8.2) gm/dl Globulin 4.3 H (2.5-4.0) gm/dl Diagnostic Findings CT ANGIOGRAM OF THE CHEST CLINICAL HISTORY: Atypical chest pain. COMPARISON STUDY: Chest x-ray dated 01/19/2021. TECHNIQUE: Following the IV administration of 102 cc of Optiray 350, CT angiogram of the chest was performed from the upper abdomen to the thoracic inlet utilizing the pulmonary embolus protocol. Images are reviewed in the axial, sagittal, and coronal planes. 3-D MIPS images are created and assessed. IV contrast was administered without complication. A dose lowering technique was utilized adhering to the principles of ALARA. CT DOSE: 691.36 mGy.cm FINDINGS: Thyroid: Imaged portions of the thyroid gland are normal in size and attenuation. Thoracic aorta: The thoracic aorta is normal in caliber and demonstrates standard 3-vessel arch anatomy. There is no evidence of dissection. Pulmonary vasculature: The pulmonary trunk is normal in caliber. There are no filling defects identified in main, lobar, or segmental pulmonary branches to suggest pulmonary embolus. Heart: The heart is enlarged and without pericardial effusion. The coronary arteries are densely calcified. Lungs and pleural spaces: There is diffuse intralobular septal thickening. Trace pleural effusions are noted. Trace fluid is also seen tracking along both major fissures. Patchy groundglass consolidation is seen throughout both lungs. The trachea and central airways are clear. Mediastinum: Scattered subcentimeter mediastinal lymph nodes are not pathologically enlarged by size criteria. Anamika: Clear. Axillae: There is no axillary lymphadenopathy. Upper abdomen: There is a small hiatal hernia. The liver appears steatotic. Partially visualized upper abdominal viscera is otherwise within normal limits. Skeletal structures: No lytic or blastic bony lesions are seen. Mild spondylotic change is noted in the thoracic spine. Medications Administered XR chest 1V portable HISTORY: 60 years-old Male Chest Pain acute atypical chest pain COMPARISON: None TECHNIQUE: Portable AP view the chest FINDINGS: Mild cardiomegaly. Pulmonary vascular congestion with bilateral reticular opacities. No pneumothorax or large pleural effusion. Degenerative changes of the shoulders and spine. IMPRESSION: Cardiomegaly and pulmonary vascular congestion with reticular interstitial opacities suggestive of pulmonary edema. An interstitial pneumonitis considered less likely. ECG Additional Comments: Test Reason : Blood Pressure : Vent. Rate : 093 BPM Atrial Rate : 093 BPM P-R Int : 134 ms QRS Dur : 096 ms QT Int : 380 ms P-R-T Axes : 061 -20 107 degrees QTc Int : 472 ms Normal sinus rhythm Left atrial enlargement Anteroseptal infarct , age undetermined Abnormal ECG When compared with ECG of 22-MAY-2019 20:23, Anteroseptal infarct is now Present T-wave inversion in Lateral leads now present 19-JAN-2021 07:35:28 [facility] ROUTINE RETRIEVAL Poor data quality, interpretation may be adversely affected Normal sinus rhythm Anterolateral infarct (cited on or before 19-JAN-2021) Abnormal ECG When compared with ECG of 19-JAN-2021 07:29, (unconfirmed) Serial changes of evolving Anterior infarct Present Serial changes of evolving Anterolateral infarct Present Code Status & VTE Plan Code Status CODE: FULL VTE: SCD's, heparin drip, VTE Prophylaxis Plan VTE Prophylaxis will be ordered: Yes Critical Care Time Critical Care Time: Yes Total Critical Care Time: 30 Supervising Physician Co-Signing Physician Notes X RAY CONSULTANT Supervision note: I have personally seen and examined the patient and discussed and verified the hinds points of the history and physical along with the plan with X RAY CONSULTANT Brezovic with the following exceptions and/or additions: This patient is a 60-year-old male with history of hypertension not treated for many years and has not been seen by a doctor in many years. He has been having left-sided chest pain radiating to the left upper arm off-and-on for quite some time which is worsened with exertion and relieved with rest last 2 weeks. This morning, he woke up and walked his dog which made the pain come on again but this time it did not go away. He presented to the ER and was hypoxic in the low 80s on room air and was placed on oxygen. He had pulmonary edema on his CT angiogram of the chest but was negative for PE. His first troponin was mildly elevated at 0.[address] depressions in his inferior leads on initial ECG. He was given aspirin and nitroglycerin in the ambulance which apparently caused hypotension and possibly a brief period of atrial fibrillation. He was in a sinus rhythm when he arrived here in our ER. He was seen by the hospitalist team in consultation and a repeat troponin was drawn and he was given IV Lasix and Nitropaste as he was continuing to have some dull left upper arm pain. His repeat troponin was 7 and cardiology was urgently contacted for heart alert. History and ROS reviewed otherwise as above Vitals reviewed Gen: AAOx3, NAD HEENT: Anicteric sclerae, EOMI CV: RRR no mgr nl S1S2, +JVD 2 cm above clavicle Pulm: Bibasilar crackles, no wheezes or rhonchi, unlabored breathing, on 3 L nasal cannula Abd: +BS soft NT ND no masses or hernias Ext: No edema, 2+ DP pulses Skin: No rashes, warm/dry Neuro: Full strength throughout 60-year-old male here with acute coronary syndrome, NSTEMI, needs urgent cardiac catheterization -Continue heparin drip, Nitropaste, aspirin Gave IV Lasix now, follow I's and O's and respiratory status -Echocardiogram Cardiology consultation greatly appreciated was contacted by phone by CANDACE Ness PG Care Time/CCT Total # of Minutes Spent Total Time Spent with Patient: Total time spent is greater than 50% in coordination of care (as documented) at patient's floor/unit and/or counseling patient: Critical Care Time: Yes Total Critical Care Time: 30 Coding Level of Care Code 14064 Initial Inpt Care Lvl 3 Diagnoses Myocardial infarction I21.4 Myocardial infarction type: non-ST elevation myocardial infarction Hypertension I10 Hypertension type: essential hypertension Obesity E66.01; Z68.35 Body mass index: BMI 35.0-35.9 Obesity classification: adult class 2 (BMI 35 - 39.9) Obesity type: due to excess calories Serious obesity comorbidity presence: with serious comorbidity Hyperglycemia R73.9 DVT prophylaxis Z29.9 Additional Codes Critical Care Time - Critical Care Time: Yes ([id number]) (1) Myocardial infarction Myocardial infarction type: non-ST elevation myocardial infarction Qualified Code(s): I21.4 - Non-ST elevation (NSTEMI) myocardial infarction (2) Hypertension Hypertension type: essential hypertension Qualified Code(s): I10 - Essential (primary) hypertension (3) Obesity Body mass index: BMI 35.0-35.9 Obesity classification: adult class 2 (BMI 35 - 39.9) Obesity type: due to excess calories Serious obesity comorbidity presence: with serious comorbidity Qualified Code(s): E66.01 - Morbid (severe) obesity due to excess calories; Z68.35 - Body mass index [BMI] 35.0-35.9, adult
[2021-01-19] MEDS ORDERED: MIDAZOLAM HCL 1 MG/ML 2ML VIAL ONE ×2 (10:58→10:59)
[2021-01-19] MEDS ORDERED: fentaNYL citrate 100 MCG/2 ML VIAL ONE ×2 (10:58→10:59)
[2021-01-19] MEDS ORDERED: niCARdipine HCL INJ 2.5 MG/ML 10 ML AMP ONE ×2 (10:58→10:59)
[2021-01-19] MEDS ORDERED: HEPARIN (PORCINE) 1000 UNIT/ML 10 ML (CATH LAB USE ONLY) ONE ×2 (10:58→11:00)
[2021-01-19] MEDS ORDERED: NITROGLYCERIN/D5W 100MCG/ML 20ML SYR ONE (10:58)
[2021-01-19] MEDS ORDERED: DOPamine 400MG / 250ML D5W (Cath Lab Use ONLY) ONE (11:46)
[2021-01-19] MEDS ORDERED: NOREPINEPHRINE BITARTRATE 1 MG/ML 4 ML VIAL (CATH LAB USE ONLY) ONE (11:46)
[2021-01-19] MEDS ORDERED: NITROGLYCERIN/D5W 100 MCG/ML BTL ONE (12:01)
[2021-01-19] MEDS ORDERED: EPTIFIBATIDE 2 MG/ML 10 ML VIAL (CATH LAB USE ONLY) IV ONE ×2 (12:01→12:05)
[2021-01-19] MEDS ORDERED: EPTIFIBATIDE 0.75 MG/ML 75MG VIAL (CATH LAB USE ONLY) ONE (12:01)
--- NOTE | 2021-01-19 12:31 | Pre Anesthesia Assessment ---
Date of Service January 19, 2021 Pre Sedation Assessment Vital Signs Temp Pulse Pulse Resp BP BP Pulse Ox 01/19/21 12:15 85 17 179/116 H 92 01/19/21 11:00 108 H 19 01/19/21 10:30 87 13 178/119 H 95 01/19/21 10:27 88 21 181/124 H 95 01/19/21 10:26 92 H 22 180/119 H 95 01/19/21 10:01 95 01/19/21 10:00 86 12 01/19/21 09:30 89 19 01/19/21 09:00 103 H 22 93 01/19/21 08:39 98 H 14 155/98 H 86 L 01/19/21 08:38 101 H 23 01/19/21 08:00 83 21 95 01/19/21 07:50 79 18 175/121 H 99 01/19/21 07:40 82 23 170/116 H 94 01/19/21 07:30 90 19 188/124 H 79 L 01/19/21 07:29 98.4 F 88 22 183/125 H 80 L Cardiovascular RRR, no murmur, no edema Respiratory normal respiratory effort, lungs clear to auscultation Pre-Sedation Airway Assessment Smoking Status: Never smoker Hx Sleep Apnea: No Hx Difficult Intubation: No Short, Thick Neck: No Thyromental Distance: > or= 3.5 Finger Breadths Oral Cavity: + WNL Mallampati Class: IV ASA: ASA3 NPO Status Date of Last Intake of Fluids: 01/19/21 Time of Last Intake of Fluids: 05:00 Date of Last Intake of Solid Food: 01/19/21 Time of Last Intake of Solid Foods: 05:00 Procedure Planning Contraindications for Sedation: none Current Medications Reviewed: Yes Notes The planned sedation has been discussed with the patient. Informed Consent was obtained. I have identified the patient, determined the appropriateness of sedation and have assessed the patient immediately prior to the procedure. All medicine(s) and interventions are by my order.
[2021-01-19] MEDS ORDERED: ONDANSETRON INJ 2 MG/ML 2 ML VIAL IV PRN (12:33)
[2021-01-19] MEDS ORDERED: MoRPHine SULFATE 2 MG/ML CARP IV PRN (12:33)
[2021-01-19] MEDS ORDERED: ACETAMINOPHEN 325 MG TAB PO PRN (12:33)
[2021-01-19] MEDS ORDERED: EPTIFIBATIDE BOLUS/DRIP IV STA (12:33)
--- NOTE | 2021-01-19 12:33 | Post Anesthesia Assessment ---
Date of Service January 19, 2021 Post Sedation Assessment Vital Signs Temp Pulse Pulse Resp BP BP Pulse Ox 01/19/21 12:15 85 17 179/116 H 92 01/19/21 11:00 108 H 19 01/19/21 10:30 87 13 178/119 H 95 01/19/21 10:27 88 21 181/124 H 95 01/19/21 10:26 92 H 22 180/119 H 95 01/19/21 10:01 95 01/19/21 10:00 86 12 01/19/21 09:30 89 19 01/19/21 09:00 103 H 22 93 01/19/21 08:39 98 H 14 155/98 H 86 L 01/19/21 08:38 101 H 23 01/19/21 08:00 83 21 95 01/19/21 07:50 79 18 175/121 H 99 01/19/21 07:40 82 23 170/116 H 94 01/19/21 07:30 90 19 188/124 H 79 L 01/19/21 07:29 98.4 F 88 22 183/125 H 80 L Recovery Score Activity: Moves 4 extremities Respiration: Deep Breath/Cough Circulation: +/-20% PreAnes Value Consciousness: Fully Awake Oxygen Saturation: > 92% On Room Air Post Anesthesia Score: 10 Discharge Sedation Level of Care: Fast Track Phase II Post Sedation Plan On clinical assessment, the patient appears to have tolerated the sedation without complications. Patient is recovering as anticipated. Patient will continue to be monitored by nursing and may be discharged when sedation discharge criteria are met per below protocol. Upon Completions of procedure up to 15 minutes continue every 5 minute vital signs and the P.A.R. score; then discharge to a Phase I or Fast Track to Phase II per the following guidelines: * Discharge Patient to appropriate Phase II area if PAR is 8 or greater or return to pre- procedure baseline. The post - procedure orders will be as directed. * If PAR score is less than 8 or not return to pre-procedure baseline then patient will follow Phase I monitoring till PAR is reached for Phase II. The Phase I may be done in procedure room or may call to secure a Phase I area. * If naloxone or flumazenil are used for reversal, hold in Phase I for continued monitoring from when last reversal dose was given for a minimum of 60 minutes or longer pending the nurse and/or physician discretion of patient condition before discharge to Phase II. Please call the Sedation Physician to re-evaluate and complete post-note for discharge to Phase II area. Do NOT discharge from procedure sedation or Phase 1 until post- sedation evaluation note is complete by procedure /sedation MD Sedation Discharge Instructions to be given to the patient at discharge to home.
[2021-01-19] MEDS ORDERED: STAT IV Infusion **Titration per Protocol STA (12:38)
[2021-01-19] MEDS ORDERED: NITROGLYCERIN/D5W 100MCG/ML 250 ML IV SCH (12:45)
[2021-01-19] MEDS ORDERED: ATORVASTATIN 40 MG TAB PO SCH (12:45)
[2021-01-19] MEDS ORDERED: EPTIFIBATIDE 75 MG/100 ML VIAL IV SCH (12:45)
[2021-01-19] MEDS ORDERED: METOPROLOL TARTRATE 25 MG TAB PO SCH (12:45)
--- NOTE | 2021-01-19 12:55 | Cardiac Catheterization ---
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 Cardiac Status Clinical evaluation leading to the procedure CAD Presenation: Non STEMI Anginal Classification: CCS IV Heart Failure: No Cardiogenic Shock within 24 Hours: No Cardiac Arrest within 24 Hours: No Imaging Studies Past 6 Months: No Stress Studies Past 6 Months: No Diagnostic Physicians Name: Nba Victoria MD Status: Urgent Closure Device Percutaneous Entry Location: Radial Closure Device: Radial Band Recommendations: CABG Lesion Segment Name: Proximal D1 Culprit Artery: Yes Stenosis Prior to Rx (%): 100 Chronic Total Occlusion: No IVUS: No FFR: No Pre-Procedure ROSALIO Flow: 0 Previously Treated Lesion: No Lesion Complexity: Non-High/Non-C Lesion Length (mm): 10 Thrombus Present: Yes Bifurcation Lesion: Yes Guidewire Across Lesion: Stenosis Post-Procedure (%): 0 Post-Procedure ROSALIO Flow: 3 Devices(s) Deployed: Yes Yes Intraprocedure Events Significant Disection: No Perforation: No Cardiac Cath Procedure Full Procedure Date January 19, 2021 Pre-Procedure Diagnosis Pre-Procedure Diagnosis: Non STEMI AUC Score AUC Score: 8 Post-Procedure Diagnosis Post-Procedure Diagnosis: Severe CAD, Successful PCI and Normal Intracardiac Pressures Procedure(s) Performed Procedure(s) Performed: Coronary Angiography, Left Heart Cath and PTCA Winch Runner Nba Victoria MD Blood Donor Recruiter(s) Beni Estimated Blood Loss Estimated Blood Loss: 10 Medication(s) Medication(s): Fentanyl, Heparin, Integrilin, Lidocaine 1%, Nicardipine, Nitroglycerin and Versed Summary of Findings Indication: High risk NSTEMI. Access: 6 Fr right radial artery Catheters: [place], EBU 3.5 guide Findings: LM -normal caliber, 40% distal stenosis prior to bifurcation LAD -100% acute ostial occlusion prior to takeoff of high first diagonal. Chronic proximal LAD occlusion with brisk right to left collaterals. Circumflex -medium caliber, 70% earlymid stenosis after takeoff of small OM1. Medium caliber OM2 100% chronically occluded proximally and fills retrograde via left to left collaterals. RCA -dominant, large caliber, mild proximal disease, 70% mid segment disease. PDA with 99% mid segment stenosis. Large right PLB with 60% proximal stenosis. LVEDP -1 -- PCI -- Antithrombotic therapy: Heparin, Integrilin Procedure: Left main cannulated with EBU 3.5 guide Risk Tech 50 wire passed across proximal LAD occlusion into high first diagonal Ostial LAD/proximal D1 occlusion dilated 2.0 compliant balloon Attempt made to cross proximal LAD occlusion after diagonal and occlusion firm, consistent with chronic disease With angioplasty into diagonal ROSALIO-3 flow reestablished, residual 90% proximal disease and medium caliber diagonal. Arterial Closure: TR band Summary: 1. Acute high D1 100% occlusion 2. Severe chronic multi-vessel coronary artery disease -40% distal left main 100% proximal LAD occlusion after takeoff of D1 with brisk right to left collaterals 70% proximal circumflex 100% chronic OM 2 occlusion fills via left to left collaterals 70% mid RCA. 99% mid PDA. 60% proximal large right PLB 3. Normal intracardiac filling pressure 4. Angioplasty of proximal first diagonal with 2.0 balloon. -Post angioplasty severe residual disease but reestablished ROSALIO-3 flow and resolution of chest pain. Recommendations: Recommend transfer to tertiary center for CABG evaluation Currently chest pain-free. Continue nitroglycerin and Integrilin infusion. Hemodynamics Rest Ao:: 106/81/106 Final Ao: 120/761 17 LV: 85/1 Recommendations Recommendations: CABG Specimens Specimens: None Radiation Exposure (mGy) 1664 Contrast (mls) 45 Fluids (cc crystalloids) Fluids (cc crystalloids): 270 Drains Drains: None Anesthesia Moderate [id number] Procedural Complication(s) None Disposition PCU I attest to the content of the Intraoperative Record and any orders documented therein. Any exceptions are noted below. [facility] Card Cath Procedure Codes Cardiac Catheterization Procedure 1: Cardiovascular Cath Procedures: 09009 Coronaries and LHC (+/-LV) Moderate Sedation Procedure 1: Sedation/Anesthesia: 78506 Mod Sedation by the same physician;Init15 Min Child Age 5 & Up Procedure 2: Sedation/Anesthesia: 20887 Mod Sedation by the same physician; Ea [id number] Minutes Stenting Procedure 1: Cardiovascular Stent Procedures: 01036 Perc transluminal revascularization of acute sub/total occl, aMI PG Care Time/CCT Total # of Minutes Spent Total Time Spent with Patient: Total time spent is greater than 50% in coordination of care (as documented) at patient's floor/unit and/or counseling patient:
--- NOTE | 2021-01-19 13:45 | Cardiology Consultation ---
Date of Consultation January 19, 2021 Assessment & Plan (1) ACS (acute coronary syndrome): Presentation consistent with high risk NSTEMI and recommend proceeding with urgent cardiac catheterization and possible PCI. No apparent contraindications to procedure. Discussed risks, benefits, alternatives of procedure with patient and they are willing to proceed. Given IV heparin in the ED. Further recommendations pending findings of coronary angiography. History of Present Illness History of Present Illness 60-year-old man here with acute chest pain and presentation consistent with acute coronary syndrome. Patient seen emergently in the Chemical Supervisor after heart alert activated due to persistent chest pain and dynamic ST changes. No prior cardiac history. Cardiac risk factors include untreated hypertension. Currently on no medications. Reports intermittent chest pain with exertion for weeks. This morning around 6 AM woke him from sleep with acute onset chest pain that did not resolve. Pain radiated to left arm/armpit. Given aspirin, sublingual nitroglycerin/nitro patch, IV Lasix 10 mg in ED. ECG showed hyperacute T waves initially, subsequent ECGs with lateral ST depressions. Initial troponin positive at 7.7 Allergies Allergy/AdvReac Type Severity Reaction Status Date / Time Penicillins Allergy Unknown Unknown Verified 01/19/21 08:08 Home Medications Medication Instructions Recorded Confirmed Type Barley Powder 1 applic PO QAM 01/19/21 01/19/21 History Beet Juice Powder 1 applic PO QAM 01/19/21 01/19/21 History Liquid Immune Booster 0.25 tsp PO BID 01/19/21 01/19/21 History cholecalciferol (vitamin D3) 0 mcg PO QAM 01/19/21 01/19/21 History [Vitamin D3] fish,bora,flax oils-om3,6,9no1 1 cap PO QAM 01/19/21 01/19/21 History [[place] 3-6-9] zinc sulfate 0 mg PO QAM 01/19/21 01/19/21 History Patient History Medical History Hypertension Family History (Updated 01/19/21 @ 12:53 by Gwendolyn Smyth MD) Other Family history non-contributory Social History Smoking Status: Never smoker Hx Substance Use: No Feels Safe at Home: Yes Review of Systems Review of Systems: All systems reviewed & are unremarkable except as noted in HPI & below Physical Exam Physical Exam: General: Comfortable HEENT: Sclerae anicteric Lungs: Clear anteriorly Cardiac: Regular rate and rhythm, no murmurs. Vascular: 2+ radial Abdomen: Soft, nontender Extremities: Well perfused, no peripheral edema Neuro: Nonfocal Psych: Alert orient x3, normal affect and mood Results & Data ([facility]) Vital Signs (Past 12 Hours) Vital Signs Temp Pulse Pulse Resp BP BP Pulse Ox 01/19/21 13:25 76 18 138/100 91 01/19/21 13:14 82 18 133/84 91 01/19/21 13:00 83 18 136/90 92 01/19/21 12:45 83 18 203/136 H 91 01/19/21 12:30 85 17 189/125 H 91 01/19/21 12:15 85 17 179/116 H 92 01/19/21 11:00 108 H 19 01/19/21 10:30 87 13 178/119 H 95 01/19/21 10:27 88 21 181/124 H 95 01/19/21 10:26 92 H 22 180/119 H 95 01/19/21 10:01 95 01/19/21 10:00 86 12 01/19/21 09:30 89 19 01/19/21 09:00 103 H 22 93 01/19/21 08:39 98 H 14 155/98 H 86 L 01/19/21 08:38 101 H 23 01/19/21 08:00 83 21 95 01/19/21 07:50 79 18 175/121 H 99 01/19/21 07:40 82 23 170/116 H 94 01/19/21 07:30 90 19 188/124 H 79 L 01/19/21 07:29 98.4 F 88 22 183/125 H 80 L PG Care Time/CCT Total # of Minutes Spent Total Time Spent with Patient: Total time spent is greater than 50% in coordination of care (as documented) at patient's floor/unit and/or counseling patient: Coding Level of Care Code 36075 Inpt Consult Level 4 Diagnoses ACS (acute coronary syndrome) I24.9
--- NOTE | 2021-01-19 14:31 | XCELERA ---
[id number]
--- NOTE | 2021-01-19 15:27 | Discharge Summary ---
Date of Service January 19, 2021 Admission HPI Per Admitting Provider 60 YOM that does not really follow with PCP and has tried hemeopathics. He reports history of high blood pressure about 6-8 years ago, where he was trialed on multiple agents. Each of them made him either feel tired or dizzy, he then started exercising and diet control and lost 20 lbs. This brought his blood pressure into normal range for him and he was able to come off his BP agent. He does not recall what that agent was. He had on syncopal episode of syncope around that time at [place] and was told at that time his blood pressure was low and then high. He takes fish oil bora, flax oil 3--9 for cardiac protection. He has been having chest pain that starts in his left axiale over the past year, but has becoming more frequent over the past 2 weeks. This pain is sharp in nature and also goes to his left bicep. He does not think these pains are in connection with each other, as one may come without the other. 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 His symptoms start about 50-75 yards into his walk. He does not have to stop but is winded by the time he gets his work. He also endorses leg swelling through the day that goes away in the morning after sleeping. He denies any orthopnea and can lay flat at night. He endorses fluttering feeling at times in his chest that is reoccurring when he lays on his left side at night. This may or may not cause the pain in his axilla. This morning he woke up and the pain started around 0600, it did not go away after he took 1 81mg aspirin so he called EMS. They arrived, he got 3 more 81 mg chewable aspirin as well as a nitroglycerin spray. He then remembers feeling dizzy and lightheaded at that time like he was going to pass out. In the ER he had a CXR done and a CTA of the chest to rule out PE. He was noted to have central ground glass opacities and interlobular thickening of his lungs. His CXR is consistent with vascular congestion as well. BNP and Troponin I ordered now. His EKG was reviewed hyperacute t-waves with reciprocal changes to inferior leads, his repeat troponin 3 hours later was 7.780 and a heart alert was called. He was started on a heparin drip, given 10 mg IV Lasix, and nitropaste was placed secondary to hypotension with SL nitro. 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 COVID test is negative Admission Exam (Per Admitting) Constitutional See physical exam performed on admission on same DOS Discharge Data Consultations 01/19/21 09:39 ED Decision to Admit Stat 01/19/21 14:10 Consult Cardiology Routine Consult Carpentry Teacher Routine 01/19/21 14:53 Burn CD for patient Stat Procedures Performed Operation Date: 01/19/21 11:00 Actual Procedures s POBA SGL Vessel - Jake Victoria MD s Cineradiography w/Routine Exam - Jake Victoria MD p Cath, Left with Cors and Vent - Jake Victoria MD Chest X-Ray 01/19/21 07:21 XR chest 1V portable HISTORY: 60 years-old Male Chest Pain acute atypical chest pain COMPARISON: None TECHNIQUE: Portable AP view the chest FINDINGS: Mild cardiomegaly. Pulmonary vascular congestion with bilateral reticular opacities. No pneumothorax or large pleural effusion. Degenerative changes of the shoulders and spine. IMPRESSION: Cardiomegaly and pulmonary vascular congestion with reticular interstitial opacities suggestive of pulmonary edema. An interstitial pneumonitis considered less likely. ACT 112: Negative or not required by law. The above report was generated using voice recognition software. It may contain grammatical, syntax or spelling errors. Electronically signed by: Lino Frye M.D. 01/19/2021 7:41 AM Chest CTA 01/19/21 07:32 CT ANGIOGRAM OF THE CHEST CLINICAL HISTORY: Atypical chest pain. COMPARISON STUDY: Chest x-ray dated 01/19/2021. TECHNIQUE: Following the IV administration of 102 cc of Optiray 350, CT angiogram of the chest was performed from the upper abdomen to the thoracic inlet utilizing the pulmonary embolus protocol. Images are reviewed in the axial, sagittal, and coronal planes. 3-D MIPS images are created and assessed. IV contrast was administered without complication. A dose lowering technique was utilized adhering to the principles of ALARA. CT DOSE: 691.36 mGy.cm FINDINGS: Thyroid: Imaged portions of the thyroid gland are normal in size and attenuation. Thoracic aorta: The thoracic aorta is normal in caliber and demonstrates standard 3-vessel arch anatomy. There is no evidence of dissection. Pulmonary vasculature: The pulmonary trunk is normal in caliber. There are no filling defects identified in main, lobar, or segmental pulmonary branches to suggest pulmonary embolus. Heart: The heart is enlarged and without pericardial effusion. The coronary arteries are densely calcified. Lungs and pleural spaces: There is diffuse intralobular septal thickening. Trace pleural effusions are noted. Trace fluid is also seen tracking along both major fissures. Patchy groundglass consolidation is seen throughout both lungs. The trachea and central airways are clear. Mediastinum: Scattered subcentimeter mediastinal lymph nodes are not pathologically enlarged by size criteria. Anamika: Clear. Axillae: There is no axillary lymphadenopathy. Upper abdomen: There is a small hiatal hernia. The liver appears steatotic. Partially visualized upper abdominal viscera is otherwise within normal limits. Skeletal structures: No lytic or blastic bony lesions are seen. Mild spondylotic change is noted in the thoracic spine. IMPRESSION: 1. There is no evidence of pulmonary embolus in the main, lobar, or segmental pulmonary arteries. 2. Cardiomegaly with evidence of congestive failure. 3. Trace pleural effusions. 4. Patchy groundglass consolidation is seen throughout both lungs and likely represents pulmonary edema. Correlate clinically for evidence of a superimposed infectious/inflammatory pneumonitis. Radiographic follow-up to resolution is recommended. 5. Additional findings as above. ACT 112: Negative or not required by law. Electronically signed by: Raghav Delvalle M.D. 01/19/2021 8:59 AM Hospital Course (1) Myocardial infarction: NSTEMI- inferolateral leads- Heart alert - Heparin bolus and drip started - Lasix 10 mg IV for pulmonary congestion - Nitropaste- until laborer yard - Asa daily 81mg - BP goals and medication addition following cath - ECHO pending - lipids panel pending- addition of statin - A1C - BB following cath Patient was taken to cardiac Office Rental Clerk and found to have severe multivessel disease, did have a high diagonal with 100% occlusion that was acute which was treated with angioplasty. He was placed on Integrilin drip, nitro drip, transferred to the ICU. Repeat troponin later came back at 157. Echocardiogram showed wall motion abnormalities and reduced EF at 35%. He was transferred to [facility] in [place] for evaluation for CABG as per cardiology recommendation. Accepting physician was Dr. Young. (2) Ischemic cardiomyopathy: EF 30-35 % with regional wall motion abnormalities severe hypokinesis involving anterolateral wall from base to mid ventricle - afterload reducing agents - euvolemic to negative volume status (3) Hypertension: Not previously on any mediations secondary to side effects of tiredness and dizziness - evaluate post cath- JOSE (4) Obesity: Continue with weight control- cardiac rehab following admisison (5) Hyperglycemia: 130 on BMP - HGB A1c in morning - will add SSI on for BG >180 if needed (6) DVT prophylaxis: SCD's -heparin drip - other antiplatelet agents per cards following cath Supervising Physician Co-Signing Physician Notes 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 He has been having left-sided chest pain radiating to the left upper arm off-and-on for quite some time which is worsened with exertion and relieved with rest last 2 weeks. This morning, he woke up and walked his dog which made the pain come on again but this time it did not go away. He presented to the ER and was hypoxic in the low 80s on room air and was placed on oxygen. He had pulmonary edema on his CT angiogram of the chest but was negative for PE. His first troponin was mildly elevated at 0.[address] depressions in his inferior leads on initial ECG. He was given aspirin and nitroglycerin in the ambulance which apparently caused hypotension and possibly a brief period of atrial fibrillation. He was in a sinus rhythm when he arrived here in our ER. He was seen by the hospitalist team in consultation and a repeat troponin was drawn and he was given IV Lasix and Nitropaste as he was continuing to have some dull left upper arm pain. His repeat troponin was 7 and cardiology was urgently contacted for heart alert. He was taken to the cardiac Office Rental Clerk and was found to have severe multivessel disease as above with acute occlusion of the high diagonal which was treated with angioplasty. Recommendation was made to transfer to [facility] in [place] for evaluation for CABG. Vitals reviewed Gen: AAOx3, NAD HEENT: Anicteric sclerae, EOMI CV: RRR no mgr nl S1S2, +JVD 2 cm above clavicle Pulm: Bibasilar crackles, no wheezes or rhonchi, unlabored breathing, on 3 L nasal cannula Abd: +BS soft NT ND no masses or hernias Ext: No edema, 2+ DP pulses Skin: No rashes, warm/dry Neuro: Full strength throughout 60-year-old male here with acute coronary syndrome, NSTEMI, severe CAD Transfer to [facility] now for CABG Coding Level of Care Code New Pt D/C Day Management >30 mins Patient Type New Medical Decision Making Moderate Complexity Diagnoses Myocardial infarction I21.4 Myocardial infarction type: non-ST elevation myocardial infarction Ischemic cardiomyopathy I25.5 Hypertension I10 Hypertension type: essential hypertension Obesity E66.01; Z68.35 Body mass index: BMI 35.0-35.9 Obesity classification: adult class 2 (BMI 35 - 39.9) Obesity type: due to excess calories Serious obesity comorbidity presence: with serious comorbidity Hyperglycemia R73.9 DVT prophylaxis Z29.9
[2021-01-20 06:35] LABS: Estimated Average Glucose 108 mg/dl; Hemoglobin A1C 5.4 % (4.5-5.6)
--- NOTE | 2021-01-20 07:45 | Electrocardiogram Report ---
Test Reason : Blood Pressure : / mmHG Vent. Rate : 089 BPM Atrial Rate : 089 BPM P-R Int : 144 ms QRS Dur : 094 ms QT Int : 376 ms P-R-T Axes : 059 -21 128 degrees QTc Int : 457 ms Normal sinus rhythm Left atrial enlargement Left ventricular hypertrophy with repolarization abnormality Anteroseptal infarct , age undetermined Abnormal ECG When compared with ECG of 22-MAY-2019 20:23, Anteroseptal infarct is now Present ST now depressed in Inferior leads ST now depressed in Lateral leads Confirmed by Sukhjinder Iqbal ([id number]) on 01/20/2021 7:45:08 AM Referred By: REFERRED SELF Confirmed By:Sukhjinder Iqbal
--- NOTE | 2021-01-20 07:46 | Electrocardiogram Report ---
Test Reason : Blood Pressure : / mmHG Vent. Rate : 079 BPM Atrial Rate : 079 BPM P-R Int : 148 ms QRS Dur : 088 ms QT Int : 386 ms P-R-T Axes : 062 -20 118 degrees QTc Int : 442 ms Poor data quality, interpretation may be adversely affected Normal sinus rhythm Anterolateral infarct (cited on or before 19-JAN-2021) Abnormal ECG When compared with ECG of 19-JAN-2021 07:29, Loss of anterolateral R waves (may be lead placement related) Confirmed by Sukhjinder Iqbal ([id number]) on 01/20/2021 7:46:32 AM Referred By: REFERRED SELF Confirmed By:Sukhjinder Iqbal
[2021-01-20] MEDS ORDERED: ASPIRIN 81 MG ECTAB PO SCH ×2 (09:00)
--- NOTE | 2021-01-29 13:06 | Coding Query ---
CODING QUERY To promote full compliance with coding requirements relating to patient care, provider participation is requested in all cases of clerk typist uncertainty. Please assist us with the question(s) below: Coding Question(s): The ER H&P documents Acute Pulmonary Edema and Progress Notes and Discharge Summary document Pulmonary Edema. Please specify below, in your clinical opinion, regarding Pulmonary Edema. ( x ) Acute Pulmonary Edema was treated with IV Lasix ( ) Acute Pulmonary Edema was treated with Other: Please Specify ( ) Acute Pulmonary Edema was Not treated or monitored during this admission ( ) Other: Please Specify Physician's Response(s): Thank you Azalea Man Principal Diagnosis: "that condition established after study, to be chiefly responsible for occasioning the admission of the patient to the hospital for care." Co-Existing Principal Diagnosis: "when two or more diagnoses equally meet the criteria for principal diagnosis as determined by the circumstances of admission, diagnostic work up, and/or therapy provided, and the Alphabetic Index, Tabular List, or another coding guideline does not provide sequencing direction, any one of the diagnoses may be sequenced first." "When the physician has documented what appears to be a current diagnosis in the body of the record, but has not included the diagnosis in the final diagnostic statement, the physician should be asked whether the diagnosis should be added." ([facility] QTR90. p3-4) ALLY
--- NOTE | 2021-01-29 13:14 | Coding Query ---
To promote full compliance with coding requirements relating to patient care, provider participation is requested in all cases of die casting supervisor uncertainty. Please assist us with the question(s) below: Coding Question(s): The diagnosis below was documented in the ER H&P, then subsequently fell off all further documentation. Please indicate if it is still a possible diagnosis or ruled out. Physician's Response(s): CONGESTIVE HEART FAILURE-acute systolic ( x ) Diagnosed and POA ( ) Diagnosed and not POA ( ) Ruled out ( ) Other (please specify) IF THE CONGESTIVE HEART FAILURE IS DIAGNOSED ABOVE, PLEASE SPECIFY THE TYPE OF CHF FURTHER BELOW: SYSTOLIC HEART FAILURE ( x) Acute ( ) Chronic ( ) Acute on Chronic ( ) Rheumatic ( ) Unknown DIASTOLIC HEART FAILURE ( ) Acute ( ) Chronic ( ) Acute on Chronic ( ) Rheumatic ( ) Unknown COMBINED SYSTOLIC AND DIASTOLIC HEART FAILURE ( ) Acute ( ) Chronic ( ) Acute on Chronic ( ) Rheumatic ( ) Unknown MTDD
== END 2021-01-19 20:02 | disposition short-term general hospital (02) | DRG 250 ==
LOC: ED 07:21 → 1E 11:08